=== PATIENT | male | born 1945 | race Caucasian/White ===

== ENCOUNTER 2016-10-04 16:37 | Emergency (ER) | payer OTHER ==
[~2016-10-04] VITALS: Ht 177.8 cm; Wt 91.5 kg
[~2016-10-04 16:37] MED LIST: ASCORBIC ACID500 M3 PO; ASPIR-LOW81 MG PO; ATORVASTATIN CA40 MG PO; ATORVASTATIN CA80 MG PO; AVODART0.5 MG PO; Ascorbic Acid PO; Aspirin E.C. PO; Caltrate 600/400 PO; Coreg PO; FISH OIL 1,0001 EA11 PO; FLAGYL250 MG PO; Glucotrol PO; HYDROCODON-ACE1 EAC7 PO; KAZANO 12.5-1,1 EACH PO; LEVEMIR FL100 UNIT/1 SC; LISINOPRIL5 MG PO; LOPRESSOR25 MG PO; LUMITENE30 MG PO; METFORMIN HCL1000 MG PO; Metamucil Capsule PO; NITROSTAT0.4 MG SL; NOVOLOG PE100 UNITS/ SC; OCUTABS TABLET1 EACH PO; OMEGA 3-6-91200 MG PO; OMEPRAZOLE20 MG PO; PLAVIX75 MG PO; PRILOSEC20 MG PO; PriLOSEC PO; ST. JOSEPH ASPI81 MG PO; VITAMIN C1000 MG PO; VITAMIN D1000 INTUN PO; VITAMIN D31000 UNI2 PO; Vicodin,Norco 5/325 PO; ZINC50 M1 PO; Zestril,Prinivil PO; Zocor PO
[2016-10-04 17:16] LABS: MCH 28.8 PG (29.0-34.0); MCHC 32.9 G/DL (30.0-36.0); MCV 87.7 FL (86-99); MEAN PLAT.VOLUME 10.5 uM^3 (9.0-12.4); PLATELET COUNT 155 K/uL (156-360); RBC DIS.WIDTH-CV 13.2 % (11.8-14.6); RBC DIS.WIDTH-SD 42.5 % (39-53); RED BLOOD COUNT 4.79 M/uL (4.00-5.50)
[2016-10-04 17:29] LABS: CHLORIDE 104 mEq/L (99-109); POTASSIUM 3.9 mEq/L (3.7-5.4)
[2016-10-04 17:30] LABS: SODIUM 138 mEq/L (136-147)
[2016-10-04 17:31] LABS: GLUCOSE 340 mg/dL (70-99)
[2016-10-04 17:33] LABS: ANION GAP 13 MEQ/L (2-14)
[2016-10-04 17:35] LABS: GFR ESTIMATE (CALCULATED) > 59 mL/min/
[2016-10-04 17:36] LABS: UREA NITROGEN (BUN) 17 mg/dL (9-23)
[2016-10-04 20:25] LABS: COLOR BLOODY ((YELLOW)); SPECIFIC GRAVITY 1.028 (1.000-1.030)
[2016-10-04 20:40] LABS: GLUCOSE (STRIP) 2000 OR MORE; LEUKOCYTES NEGATIVE; NITRITE NEGATIVE; PROTEIN (STRIP) >=2000
[2016-10-04 20:41] LABS: ADD MIUA? YES; BILIRUBIN NEGATIVE; BLOOD LARGE; KETONES TRACE; UROBILINOGEN 0.2 MG/DL (0.2-1.0)
[2016-10-04 21:05] LABS: RED BLOOD CELLS TNTC /HPF (0-5); UCUL ADDED? YES
[2016-10-04 21:56] VITALS: BP 102/77
== END 2016-10-04 21:56 | disposition home or self-care (01) ==
LOC: EME → EDBD 16:37 → EME 21:56
PROVIDERS: Emergency Medicine
DX: R31.9 Hematuria, unspecified (principal); C61 Malignant neoplasm of prostate; I10 Essential (primary) hypertension; I25.2 Old myocardial infarction; K21.9 Gastro-esophageal reflux disease without esophagitis; Z87.442 Personal history of urinary calculi; Z95.1 Presence of aortocoronary bypass graft; Z87.891 Personal history of nicotine dependence
CPT/HCPCS: 80048; 81003; 85027; 87086; 99281; 99284